=== PATIENT | male | born 1990 | race African-American/Black ===

== ENCOUNTER 2022-05-10 12:28 | Emergency (ER) | payer OTHER | END 2022-05-10 12:51 | disposition home or self-care (01) | LOC: MW.ED 12:28 | DX: H66.002 Acute suppurative otitis media without spontaneous rupture of ear drum, left ear (principal) | CPT/HCPCS: 99282; 99283 ==

== ENCOUNTER 2022-11-06 11:44 | Emergency (ER) | payer SELFPAY ==
[2022-11-06] MEDS ORDERED: Sodium Chloride 0.9% 1,000 ML IV STA (12:21)
[2022-11-06] MEDS ORDERED: Ketorolac 30 MG/ML SDV IVPUSH STA (12:21)
[2022-11-06] MEDS ORDERED: diphenhydrAMINE 50 MG/ML SDV IVPUSH STA (12:21)
[2022-11-06] MEDS ORDERED: Promethazine 25 MG/ML SDV IM STA (12:32)
[2022-11-06 13:00] LABS: CORONAVIRUS COVID-19 NAA NEGATIVE (NEGATIVE); INFLUENZA A NAA NEGATIVE (NEGATIVE); INFLUENZA B NAA NEGATIVE (NEGATIVE); RESPIRATORY SYNCYTIAL VIR NAA NEGATIVE (NEGATIVE)
== END 2022-11-06 13:41 | disposition home or self-care (01) ==
LOC: MW.ED 11:44
DX: G44.201 Tension-type headache, unspecified, intractable (principal); Z20.822 Contact with and (suspected) exposure to COVID-19
CPT/HCPCS: 0241U; 96361; 96372; 96374; 96375; 99284; J1200; J1885; J2550; J7030

== ENCOUNTER 2023-11-01 08:16 | Emergency (ER) | payer SELFPAY ==
[2023-11-01] MEDS: Lidocaine 1% 5 ML VIAL INJECT ONE (08:56)
== END 2023-11-01 09:56 | disposition home or self-care (01) ==
LOC: MW.ED 08:16
DX: S61.216A Laceration without foreign body of right little finger without damage to nail, initial encounter (principal); Z75.8 Other problems related to medical facilities and other health care; W23.0XXA Caught, crushed, jammed, or pinched between moving objects, initial encounter
CPT/HCPCS: 12001; 73140-26-F9; 73140-F9; 99283; J3490